=== PATIENT | female | born 1985 | race Caucasian/White ===

== ENCOUNTER 2018-06-26 19:28 | Emergency (ER) | payer MEDICAID ==
[~2018-06-26] VITALS: Ht 170.2 cm; Wt 136.0 kg
[2018-06-26 19:39] VITALS: BP 140/52
[2018-06-26] MEDS ORDERED: ibuprofen tablet 400 MG TABLET PO ONE (21:25)
== END 2018-06-26 21:40 | disposition home or self-care (01) ==
LOC: ER 19:29
DX: M25.532 Pain in left wrist (principal); R07.81 Pleurodynia; R51 Headache; V43.52XA Car driver injured in collision with other type car in traffic accident, initial encounter; Y93.89 Activity, other specified; Y92.488 Other paved roadways as the place of occurrence of the external cause; Y99.8 Other external cause status
CPT/HCPCS: 99282